=== PATIENT | female | born 2000 | race African-American/Black ===

== ENCOUNTER 2021-09-21 13:57 | Emergency (ER) | payer OTHER ==
[2021-09-21 14:05] VITALS: BP 137/78; TEMP 98.2
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
[2021-09-21 15:43] VITALS: PULSE 78; RESP 16
== END 2021-09-21 15:43 | disposition home or self-care (01) ==
LOC: EC 13:57
DX: S01.511A Laceration without foreign body of lip, initial encounter (principal); V89.2XXA Person injured in unspecified motor-vehicle accident, traffic, initial encounter; Y92.410 Unspecified street and highway as the place of occurrence of the external cause
CPT/HCPCS: 70450; 70486; 72125; 99284

== ENCOUNTER → 2023-03-13 | Outpatient (CLI) | payer OTHER ==
--- NOTE | 2023-03-13 08:09 | US ---
EXAMINATION TYPE: US kidneys/renal and bladder DATE OF EXAM: 03/13/2023 COMPARISON: NONE CLINICAL INDICATION: Female, 22 years old with history of N32.89 OTHER SPECIFIED DISORDERS OF BLADDER ; Patient states 2 years ago she was told by her doctor that she has bladder wall thickening, no symp toms at this time EXAM MEASUREMENTS: Right Kidney: 10.4 x 4.6 x 5.1 cm Left Kidney: 10.5 x 5.2 x 5.7 cm Right Kidney: No hydronephrosis or masses seen Left Kidney: No hydronephrosis or masses seen Bladder: wnl Bilateral Jets seen: Yes There is no evidence for hydronephrosis at this point in time. No nephrolithiasis is seen. No sarah s are identified. The urinary bladder is anechoic. Bilateral ureteral jets are seen. IMPRESSION: No discrete abnormality seen at this time.
== END | disposition home or self-care (01) ==
LOC: RADUSWWP 07:10
PROVIDERS: ATTEND Family Medicine
DX: N32.89 Other specified disorders of bladder (principal)
CPT/HCPCS: 76770